=== PATIENT | male | born 1970 | race Caucasian/White ===

== ENCOUNTER 2018-03-08 21:14 | Emergency (ER) | payer OTHER ==
[~2018-03-08] VITALS: Ht 177.8 cm; Wt 77.5 kg
[2018-03-08 21:16] VITALS: TEMP 36.7; Ht 177.8 cm; Wt 77.5 kg
[2018-03-08] MEDS ORDERED: LIDOCAINE/EPINEPHRINE 1% 20 ML VIAL INFIL STA (21:43)
[2018-03-08] MEDS ORDERED: LIDOCAINE 1% BUFFERED INJ 5 ML VIAL INFIL ONE (21:43)
[2018-03-08] MEDS ORDERED: SULFAMETHOXAZOLE/TRIMETHOPRIM DS 800/160MG TAB PO STA (21:43)
[2018-03-08] MEDS ORDERED: CEPHALEXIN MONOHYDRATE 250 MG CAP PO ONE (21:45)
--- NOTE | 2018-03-08 21:45 | EMERGENCY ROOM VISIT NOTE ---
History Report prepared by Jj: Zaid Palomino Under the Supervision of: Dr. Az Zamudio M.D. First contact with patient: 21:30 Chief Complaint: OTHER COMPLAINT Stated Complaint: SORE ON SIDE History of Present Illness The patient is a 47 year old male who presents to the Emergency Room with complaints of a constant sore to the right side of his torso beginning a few days ago. The patient states he has a history of MRSA sores, and he believes this is the start of another outbreak. He notes he was in the shower before coming here, and he squeezed most of the puss out of it. He reports he has a history of smoking as well. The patient notes he has been working in a moldy basement for the past few days, and he has been wearing a mask. He states his clothing does not get wet. The patient reports he also has been experiencing a cough and runny nose. He notes he does not need a work up for his cold symptoms. Source of History: patient Onset: a few days ago Position: other (right torso) Quality: other (sore) Timing: constant Associated Symptoms: + cough Note: Associated symptoms: runny nose Review of Systems See HPI for pertinent positives & negatives. A total of 10 systems reviewed and were otherwise negative. Past Medical & Surgical Medical Problems: (1) MRSA cellulitis Family History Patient reports no known family medical history. Social History Smoking Status: Current Every Day Smoker Alcohol Use: occasionally Marital Status: in relationship Housing Status: lives with significant other Occupation Status: employed Current/Historical Medications Scheduled Cephalexin Monohydrate (Keflex), 1 CAP PO QID Sulfa/Trimethoprim (Bactrim Ds 800MG/160MG), 1 TAB PO BID Allergies Coded Allergies: No Known Allergies (Unverified , 03/08/18) Physical Exam Vital Signs Date Time Temp Pulse Resp B/P (MAP) Pulse Ox O2 Delivery O2 Flow Rate FiO2 03/08/18 22:17 74 20 138/77 98 03/08/18 21:16 36.7 82 18 140/87 95 Room Air Physical Exam GENERAL: Awake, alert, well-appearing, in no acute distress HENT: Normocephalic, atraumatic. Oropharynx unremarkable. EYES: Normal conjunctiva. Sclera non-icteric. NECK: Supple. No nuchal rigidity. FROM. No JVD. RESPIRATORY: Clear to auscultation. CARDIAC: Regular rate, normal rhythm. Extremities warm and well perfused. Pulses equal. ABDOMEN: Soft, non-distended. No tenderness to palpation. No rebound or guarding. No masses. RECTAL: Deferred. MUSCULOSKELETAL: Chest examination reveals no tenderness. The back is symmetrical on inspection without obvious abnormality. There is no CVA tenderness to palpation. No joint edema. LOWER EXTREMITIES: Calves are equal size bilaterally and non-tender. No edema. No discoloration. NEURO: Normal sensorium. No sensory or motor deficits noted. SKIN: No jaundice noted. Quarter-sized cellulitis area that does not express fluid easily. Medical Decision & Procedures Medications Administered Medications (Trade) Dose Ordered Sig/Brittany Route Start Time Stop Time Status Last Admin Dose Admin Trimethoprim/ Sulfamethoxazole (Septra Ds 800/ 160MG Tab) 1 tab NOW STAT PO 03/08/18 21:43 03/08/18 21:46 DC 03/08/18 22:16 1 TAB Cephalexin Monohydrate (Keflex Cap) 500 mg NOW ONCE PO 03/08/18 21:45 03/08/18 21:46 DC 03/08/18 22:16 500 MG Procedure Incision & Drainage Indication: Abscess. Location: Right torso Verbal consent was obtained after the risks and benefits were explained, including but not limited to bleeding, scarring, infection, pain, and bone/joint /nerve damage. At this time, the risks of the procedure are less than the risks of NOT performing the procedure. A time out was taken and the correct patient and site identified. The skin was prepped with betadine and a sterile field set. The wound was anesthetized with 20 ml of 1% lidocaine with epinephrine. The abscess cavity was entered with a number 18 needle and no material was expressed. ED Course 2140: Past medical records reviewed. The patient was evaluated in room A10. A complete history and physical examination was performed. I also performed I&D Procedure. Please refer to the procedure note for further information. After the I&D I discussed results and treatment plan with the patient. He verbalizes agreement and understanding. The patient is ready for discharge. 2142: Ordered Trimethoprim/Sulfamethoxazole 1 tab PO, Lidocaine HCl 20ml INFIL 2144: Ordered Keflex Cap 500mg PO Medical Decision Differential diagnosis: Etiologies such as cellulitis, abscess, MRSA infection, DVT, necrotizing fasciitis, dermatitis, drug eruption, as well as others were entertained. This is a 47-year-old male who presents the emergency department complaining of cellulitic area. I attempted to drain the abscess as above however I was unable to aspirate any pus. This reason I will place the patient on Bactrim and Keflex and recommended the patient return if the cellulitis worsens. Patient was in agreement with the treatment plan. Medication Reconcilliation Current Medication List: was personally reviewed by me Blood Pressure Screening Patient's blood pressure: Elevated blood pressure Blood pressure disposition: Elevated BP felt to be situational Impression Primary Impression: Cellulitis Scribe Attestation The scribe's documentation has been prepared under my direction and personally reviewed by me in its entirety. I confirm that the note above accurately reflects all work, treatment, procedures, and medical decision making performed by me. Departure Information Dispostion Home / Self-Care Prescriptions Cephalexin Monohydrate (Keflex) 500 Mg Cap 1 CAP PO QID for 10 Days, #40 CAP Prov: Az Zamudio MD 03/08/18 Sulfa/Trimethoprim (Bactrim Ds 800MG/160MG) Tab 1 TAB PO BID for 10 Days, #20 TAB Prov: Az Zamudio MD 03/08/18 Referrals No Doctor, Assigned (PCP) Forms HOME CARE DOCUMENTATION FORM, IMPORTANT VISIT INFORMATION, WORK / SCHOOL INSTRUCTIONS Patient Instructions Cellulitis - [facility], My [facility] Additional Instructions You have been examined and treated today on an emergency basis only. This is not a substitute for, or an effort to provide, complete comprehensive medical care. It is impossible to recognize and treat all injuries or illnesses in a single emergency department visit. It is therefore important that you follow up closely with your PCP. Call as soon as possible for an appointment. Thank you for your time and consideration. I look forward to speaking with you again soon. Please don't hesitate to call us if you have any questions. Problem Qualifiers Primary Impression: Cellulitis Site of cellulitis: trunk Site of cellulitis of trunk: chest wall Qualified Codes: L03.313 - Cellulitis of chest wall
[2018-03-08] MEDS ORDERED: CEPH500C PO (21:52)
[2018-03-08] MEDS ORDERED: SULF800T23 PO (21:52)
[2018-03-08 22:17] VITALS: BP 138/77; PULSE 74; O2SAT 98
== END 2018-03-08 22:15 | disposition home or self-care (01) ==
LOC: C.EDB 21:15 → C.EDA 22:15
DX: L03.313 Cellulitis of chest wall (principal); Z86.14 Personal history of Methicillin resistant Staphylococcus aureus infection; F17.210 Nicotine dependence, cigarettes, uncomplicated